=== PATIENT | female | born 1995 | race Two or more races ===

== ENCOUNTER 2021-07-11 05:17 | Inpatient (IN) | payer OTHER ==
[~2021-07-11] VITALS: Ht 167.6 cm; Wt 3.6 kg
[2021-07-11] MEDS ORDERED: PRENATAL CAPLE1 EAC1 PO (14:13)
== END 2021-07-14 12:07 | disposition home or self-care (01) | DRG 788 ==
LOC: LDR 05:17 → OB/GYN 05:17 → O/R 18:10 → OB/GYN 21:50
PROVIDERS: ADMIT Obstetrics & Gynecology; ATTEND Obstetrics & Gynecology
PROC: 4A1HXCZ Monitoring of Products of Conception, Cardiac Rate, External Approach (ICD-10-PCS; 2021-07-11)
PROC: 10D00Z1 Extraction of Products of Conception, Low, Open Approach (ICD-10-PCS; principal; 2021-07-11 17:00)
DX: O62.1 Secondary uterine inertia (principal); Z20.822 Contact with and (suspected) exposure to COVID-19; Z3A.39 39 weeks gestation of pregnancy; Z37.0 Single live birth